=== PATIENT | female | born 1975 | race Caucasian/White ===

== ENCOUNTER 2018-12-18 06:18 | Inpatient (IN) | payer MEDICARE, MEDICAID | END 2018-12-30 23:57 | disposition short-term general hospital (02) | LOC: ICU 2S 12-19 02:50 → PCU 3S 12-27 06:00 → ER 06:18 → PCU 3S 12-25 14:59 → ED HOLD 08:45 → SUR 3N 17:19 | PROC: 5A1935Z Respiratory Ventilation, Less than 24 Consecutive Hours (ICD-10-PCS; principal; 2018-12-20 09:40) | PROC: 06183J4 Bypass Portal Vein to Hepatic Vein with Synthetic Substitute, Percutaneous Approach (ICD-10-PCS; 2018-12-20 09:40) | PROC: 05L Upper Veins, Occlusion (ICD-10-PCS; 2018-12-20 09:40) | PROC: 0DJ08ZZ Inspection of Upper Intestinal Tract, Via Natural or Artificial Opening Endoscopic (ICD-10-PCS; 2018-12-20 09:40) | PROC: 06WY3DZ Revision of Intraluminal Device in Lower Vein, Percutaneous Approach (ICD-10-PCS; 2018-12-20 09:40) | DX: I86.4 Gastric varices (principal); R57.8 Other shock; K92.2 Gastrointestinal hemorrhage, unspecified; D62 Acute posthemorrhagic anemia; N39.0 Urinary tract infection, site not specified; I85.00 Esophageal varices without bleeding; Z72.89 Other problems related to lifestyle; F17.200 Nicotine dependence, unspecified, uncomplicated; E87.6 Hypokalemia; K74.60 Unspecified cirrhosis of liver ==

== ENCOUNTER 2019-01-11 15:17 | Outpatient (CLI) | payer MEDICARE, MEDICAID ==
[~2019-01-11 15:17] MED LIST: CROM10DR2; FLUT16SP2 BOTHNARES; NO HOME MEDS
[2019-01-11 16:01] LABS: BASOPHILS % (AUTO) 0.7 % (0-1); EOSINOPHILS # (AUTO) 0.2 X10'3 (0-0.9); EOSINOPHILS % (AUTO) 3.5 % (0-6); HEMATOCRIT 29.5 % (35.0-45.0); HEMOGLOBIN 9.9 g/dl (12.0-16.0); LYMPHOCYTES # (AUTO) 0.9 X10'3 (1.1-4.8); LYMPHOCYTES % (AUTO) 19.8 % (21-51); MEAN CORPUSCULAR HEMOGLOBIN 30.7 PG (27.0-31.0); MEAN CORPUSCULAR HGB CONC 33.4 g/dL (33.0-36.5); MEAN CORPUSCULAR VOLUME 92.1 FL (78-98); MEAN PLATELET VOLUME 7.7 FL (7.4-10.4); MONOCYTES # (AUTO) 0.4 X10'3 (0-0.9); MONOCYTES % (AUTO) 9.4 % (2-12); NEUTROPHILS # (AUTO) 3.1 X10'3 (1.8-7.7); NEUTROPHILS % (AUTO) 66.6 % (42-75); PLATELET COUNT 163 X10'3 (140-440); RED BLOOD COUNT 3.21 X10'6 (4.20-5.60); RED CELL DISTRIBUTION WIDTH 22.9 % (11.5-14.5); WHITE BLOOD COUNT 4.7 X10'3 (4.5-11.0)
[2019-01-11 16:09] LABS: ALANINE AMINOTRANSFERASE 54 U/L (12-78); ALBUMIN 2.1 G/DL (3.4-5.0); ALKALINE PHOSPHATASE 123 IU/L (46-116); ANION GAP 9 (8-16); ASPARTATE AMINO TRANSFERASE 165 U/L (10-37); BILIRUBIN,TOTAL 3.5 MG/DL (0.1-1.0); BLOOD UREA NITROGEN 8 MG/DL (7-18); BUN/CREATININE RATIO 15.1 (6.6-38.0); CALCIUM 8.4 MG/DL (8.5-10.1); CHLORIDE 108 MMOL/L (99-107); CREATININE 0.53 MG/DL (0.40-0.90); GLUCOSE 87 MG/DL (70-104); POTASSIUM 3.5 MMOL/L (3.5-5.1); SODIUM 142 MMOL/L (135-145); eGFR > 90 ML/MIN
[2019-01-11 16:28] LABS: ANISOCYTOSIS 3+; PLATELET ESTIMATE NORMAL; POLYCHROMASIA 1+; TEAR DROP CELLS 1+
[2019-01-11 16:29] LABS: STOMATOCYTES 1+
[2019-01-11 16:30] LABS: ALBUMIN/GLOBULIN RATIO 0.5 (1.1-1.5); TOTAL PROTEIN 6.4 G/DL (6.4-8.2)
== END 2019-01-11 23:59 | disposition home or self-care (01) ==
LOC: LAB 15:17
DX: D64.9 Anemia, unspecified (principal); R94.5 Abnormal results of liver function studies; Z87.891 Personal history of nicotine dependence
CPT/HCPCS: 36415; 80053; 85025